=== PATIENT | female | born 1955 | race Caucasian/White ===

== ENCOUNTER 2017-02-23 20:34 | Inpatient (IN) ==
[2017-02-23] MEDS ORDERED: Ringers Solution, Lactated 1,000 ML ONE (20:53)
[2017-02-23] MEDS ORDERED: *HR* Promethazine 25 MG/ML VIAL IVP PRN (21:08)
[2017-02-23] MEDS ORDERED: *HR* HYDROmorphone (PF) 1 MG/ML SYRINGE IVP PRN (21:08)
[2017-02-23] MEDS ORDERED: Ondansetron 4 MG/2 ML VIAL IVP ONE (21:08)
--- NOTE | 2017-02-23 21:08 | Anesthesia Evaluation PreOp ---
Date of Encounter: 02/23/17 Time of Encounter: 21:06 - Past History Planned Operation: Exploratory Celiotomy Cardiac History: Hyperlipidemia Pulmonary History: Denies Any Significant HX ATTENDANCE OFFICER History: Denies Any Significant HX Other Medical History: Other (anxiety/depression) Anesthesia History: No Prior Anesthetic Complications, Past Anesthesia Alcohol Use: none Drug use: none Medications and Allergies ALPRAZolam [Xanax 0.25 MG Tablet] 1 mg PO BID 02/23/17 [History] Multivitamin [One Daily Essential] 1 each PO DAILY 02/23/17 [History] Mv,Iron,Min/Folic Acid/Biotin [Hair, Skin and Nails Softgel] 1 tab PO DAILY 08/07 [History] Sertraline [Zoloft] 100 mg PO DAILY 02/23/17 [History] 3 Allergy/AdvReac Type Severity Reaction Status Date / Time No Known Allergies Allergy Verified 02/23/17 20:36 - Meds/Allergy Pre-op Review Medications Reviewed: Yes Allergies Reviewed: Yes Beta Blockers on Current Med List: No Anesthesia Results - Labs Laboratory Tests 02/23/17 02/23/17 18:43 18:43 WBC 9.0 Hgb 13.9 Hct 38.7 Plt Count 196 Sodium 141 Potassium 3.4 L BUN 22 H Creatinine 0.72 - Imaging EKG: report reviewed (02/23/2017 SR) Anesthesia Exam Vital Signs/O2 Sat, Most Current Temp Pulse Resp BP Pulse Ox 99.7 F H 85 20 147/88 97 02/23/17 20:36 02/23/17 20:36 02/23/17 20:53 02/23/17 20:53 02/23/17 20:36 Height: 5'4''/1.63 m Weight: 153 lbs/69.4 kg NPO (# of Hours): 8 Pain Scale: 6 Pain Scale Used: Numeric (1 - 10) - HEENT Pupil (Motor): EOMI Mallampati: II Teeth: Normal Oral Opening: Greater than 3 - ATTENDANCE OFFICER LOC: Oriented ATTENDANCE OFFICER Motor: Normal RUE, Normal LUE, Normal RLE, Normal LLE, Normal Face ATTENDANCE OFFICER Sensory: Normal: RUE, LUE, RLE, LLE, Face - Cardiac Rhythm: Regular Murmur: None - Pulmonary Breath Sounds: bilateral Clear Respiratory Effort: Symmetrical Anesthesia Assess/Plan ASA Score: 2, E Modified [place] Scale for Level of Consciousness: Cooperative, oriented, and tranquil Anesthetic Plan: General Monitoring Plan: Standard Monitors Recovery Plan: ICU
[2017-02-23] MEDS ORDERED: Ringers Solution, Lactated 500 ML IVC ONE (23:51)
--- NOTE | 2017-02-23 23:54 | Operative Note ---
Date of procedure: 02/23/17 Pre-op diagnosis: acute abd pain, peritonitis due to perforated viscus Post-op diagnosis: other (acute perforated anterior duodenal ulcer) Procedure: exploratory celiotomy with excision perforated ulcer anterior duodenal bulb; Guillermo pyloroplasty, Truncal Vagotomy; placement Post gastrostomy tube Complications: none apparent Anesthesia: JORGE Surgeon: James Falk Action Finisher: Sean Sheikh Estimated blood loss (cc): 100 IV fluids (cc): 1,000 Specimen: anterior duodenal ulcer, vagus nerves (left marked with suture) Condition: stable Disposition: ICU Procedure in Detail: The patient was brought to the operating room where she was placed supine on the operating table. Surgical consent was obtained preoperatively. The patient was appropriately identified as to person and procedure. The accuracy of this information was confirmed by the procedure team. The patient was then intubated and anesthetized under the supervision of Dr. Arvin Rogers. Roa catheter was inserted, an orogastric tube was placed. The abdomen was prepped and draped in the usual sterile fashion. An upper midline incision was made with a #10 scalpel and extended to the fascia. Bleeding points were controlled with electrocautery. Fascia was divided in the midline along the linea alba. The abdomen was entered atraumatically. Inflammatory fluid was immediately apparent in the vicinity of the stomach. Exposure was facilitated with the self -retaining Omni tract retractor. The liver appeared grossly normal as did the gallbladder and spleen. Examination of the small bowel and colon was limited by adhesions in the pelvis, but the exam demonstrated no significant abnormalities seen either structure. The stomach was retracted, a clean perforated ulcer of the anterior duodenal bulb was identified. The ulcer was excised. The duodenotomy was extended proximally through the pylorus onto the anterior antrum. A Post gastrostomy tube was introduced through the left upper anterior abdominal wall. A gastrotomy was created with the Bovie electrocautery on the anterior gastric wall allowing the Post gastrostomy tube be passed thru the gastrotomy to the defect created on anterior gastric wall and duodenum. The gastrotomy was closed with a 3-0 silk pursestring The anterior gastric wall was secured to the anterior abdominal wall with 3-0 silk. The gastrostomy tube was then threaded into the distal duodenum. The pyloroplasty was then closed transversely in a technique described by Jose Ramon Casillas. This was accomplished with interrupted 3-0 silk followed by a double application of an Ethicon TX 60 mm stapler using 3.5 mm kaylen (green cartridge ). The abdomen was copiously irrigated with warm sterile saline which was evacuated with a suction device. I then proceeded to the intra-abdominal esophagus to complete a truncal vagotomy. The peritoneal covering of the esophagus was incised, the esophagus was isolated and tagged with a half-inch Kamryn drain. The right and left vagus nerves were identified by palpation, grasped with a right angle clamp. Clips were applied distal and proximal and a segment of the Vagus nerves was excised and sent to Pathology. Left vagus nerve was tagged with a silk suture. After completing the truncal vagotomy, examination of the distal esophagus demonstrated no other bandlike structures suggestive of neural tissue. The abdomen was then inspected for adequate hemostasis. The pyloroplasty was intact by inspection. Closure was then accomplished in layers. The peritoneum was closed with running interlocking 0 Vicryl. The midline fascia was approximated with interrupted [id number] of 0 Vicryl. The subcutaneous tissue was approximated with running 3-0 Vicryl. The skin edges were approximated with kaylen. A dry sterile dressing was applied. The patient was taken to ICU in stable condition. Needle, sponge, and instrument counts were correct at the close of the case.
[2017-02-24] MEDS ORDERED: Ondansetron 4 MG/2 ML VIAL IVP PRN ×2 (00:13→11:30)
[2017-02-24] MEDS ORDERED: *HR* HYDROmorphone 20 MG/20 ML PCA IVC PRN ×2 (00:13→11:30)
[2017-02-24] MEDS ORDERED: *HR* LORazepam 0.5 MG TABLET PO PRN ×2 (00:13→11:30)
[2017-02-24] MEDS ORDERED: Ringers Solution, Lactated 1,000 ML IVC SCH (00:13)
[2017-02-24] MEDS: Albuterol 2.5 MG/3 ML NEBULIZER IH SCH ×6 (00:52→22:45)
[2017-02-24] MEDS: ceFAZolin 1,000 MG in D5% in Water (Mini-Bag+) 100 ML IVPB SCH ×2 (01:00→09:07)
[2017-02-24] MEDS ORDERED: 0.9 % Sodium Chloride 250 ML ONE (01:14)
[2017-02-24 04:13] LABS: BUN/Creatinine Ratio 23 (6-26); Blood Urea Nitrogen 17 mg/dL (7-20); Calcium 8.7 mg/dL (8.6-10.8); Carbon Dioxide 26 mEq/L (19-29); Chloride 107 mEq/L (98-109); Glucose 171 mg/dL (70-99); Osmolality,Calculated 296 (280-300); Potassium 3.7 mEq/L (3.5-4.5); Sodium 140 mEq/L (136-145); eGFR For African Americans > 60 (> 60); eGFR For Non-African Americans > 60 (> 60)
[2017-02-24 04:16] LABS: Basophils % 0.1 %; Hematocrit 38.2 % (35.3-44.9); Hemoglobin 12.9 g/dL (11.5-15.4); Immature Granulocytes % 0.3 % (0-4); Lymphocytes # 0.5 K/mcL (0.6-4.6); Lymphocytes % 5.3 %; Mean Corpuscular HGB Conc 33.8 g/dL (31.6-35.5); Mean Corpuscular Hemoglobin 30.5 pg (28.0-33.3); Mean Corpuscular Volume 90.3 fL (83.0-100.0); Mean Platelet Volume 8.7 fL (9.4-12.4); Monocytes # 0.3 K/mcL (0.0-1.3); Monocytes % 2.9 %; Neutrophils # 8.7 K/mcL (1.6-8.9); Platelet Count 182 K/mcL (140-400); Red Blood Count 4.23 M/mcL (3.82-4.97); Red Cell Distribution Width 12.5 % (11.5-14.5); Segmented Neutrophils % 91.4 %
[2017-02-24 05:02] LABS: Platelet Estimate Normal (Normal)
[2017-02-24] MEDS ORDERED: Pantoprazole 40 MG VIAL IVP SCH (09:00)
--- NOTE | 2017-02-24 10:15 | General Surgery Progress Note ---
Date of Encounter: 02/24/17 Time of Encounter: 10:10 Subjective Patient reports: feels better Narrative: General Surgery - POD#1 Patient feeling much better with almost complete resolution pre op abdominal pain. No N/V. Afebrile, 98.2; pulse 91, respirations 16, blood pressure 111/75. SPO2 on room air 95% Lungs: Clear, better inspiratory effort; minimal abdominal pain on inspiration Cardiac: Regular rate, no appreciable murmurs Abdomen: Soft, minimal incisional tenderness. Incision clean and dry. Bowel sounds present Gastrostomy output proximally 75 mL bilious fluid Urine output: 700 mL since surgery Laboratories: White count 9.5, hemoglobin 12.9, hematocrit 38.2. Platelet count 182,000 Electrolytes within normal limits; BUN 17, creatinine 0.74. Impression: Postoperative day 1, status post exploratory ciliotomy with excision of perforated anterior duodenal ulcer; Heineke-Mikulicz pyloroplasty, truncal vagotomy and placement of Post gastrostomy tube. Acceptable postoperative status. Plan: Transfer to general bed Maintain nothing by mouth Remove Roa Objective Vital Signs - Last 8 Hours Temp Pulse Resp BP Pulse Ox 02/24/17 09:00 91 16 111/75 95 02/24/17 08:00 74 16 118/70 95 02/24/17 07:48 76 02/24/17 07:41 16 96 02/24/17 07:00 80 18 115/75 96 02/24/17 06:00 80 10 105/70 98 02/24/17 05:00 96 22 105/68 98 02/24/17 04:48 98.2 F 02/24/17 04:00 87 13 117/76 97 02/24/17 03:49 78 02/24/17 03:45 16 98 02/24/17 03:00 79 10 106/72 97 02/24/17 02:30 92 14 117/56 98 Intake and Output 02/23/17 02/24/17 02/24/17 23:59 07:59 15:59 Intake Total 100 / 100 Output Total 875 / 875 Balance -775 / -775 Intake: IV Fluids 100 / 100 Ancef 1,000 MG In Dextrose 5% ( 100 / 100 Minibag+) 100 ML 100 ML @ 200 mls/hr IVPB Q8H [facility] Rx#: [id number] Output: Estimated Blood Loss 100 / 100 Catheter 700 / 700 Gastric Drainage 75 / 75 Other: Blood Glucose* 175 - Labs 02/24/17 03:56 02/24/17 03:56 Diabetes panel 02/24/17 Range/Units 03:56 Sodium 140 (136-145) mEq/L Potassium 3.7 (3.5-4.5) mEq/L Chloride 107 (98-109) mEq/L Carbon Dioxide 26 (19-29) mEq/L BUN 17 (7-20) mg/dL Creatinine 0.74 (0.57-1.11) mg/dL Glucose 171 H (70-99) mg/dL Calcium 8.7 (8.6-10.8) mg/dL Calcium panel 02/24/17 Range/Units 03:56 Calcium 8.7 (8.6-10.8) mg/dL Pituitary panel 02/24/17 Range/Units 03:56 Sodium 140 (136-145) mEq/L Potassium 3.7 (3.5-4.5) mEq/L Chloride 107 (98-109) mEq/L Carbon Dioxide 26 (19-29) mEq/L BUN 17 (7-20) mg/dL Creatinine 0.74 (0.57-1.11) mg/dL Glucose 171 H (70-99) mg/dL Calcium 8.7 (8.6-10.8) mg/dL Adrenal panel 02/24/17 Range/Units 03:56 Sodium 140 (136-145) mEq/L Potassium 3.7 (3.5-4.5) mEq/L Chloride 107 (98-109) mEq/L Carbon Dioxide 26 (19-29) mEq/L BUN 17 (7-20) mg/dL Creatinine 0.74 (0.57-1.11) mg/dL Glucose 171 H (70-99) mg/dL Calcium 8.7 (8.6-10.8) mg/dL - VTE Documentation of Mechanical Device: Intermittent pneumatic compression device Consult Discharge Plan - Plan Referrals: Дмитрий Washington MD [Primary Care Provider] -
[2017-02-24] MEDS: D5% in 0.45% NACL 1,000 ML IVC SCH (13:48)
[2017-02-24] MEDS: *HR* Heparin 5,000 UNIT/ML VIAL SQ SCH (17:21)
[2017-02-24] MEDS ORDERED: *HR* Heparin 5,000 UNIT/ML VIAL SQ SCH (18:00)
--- NOTE | 2017-02-24 22:53 | Electrocardiograph Report ---
[facility] [place] Test Date: 2017-02-23 Pat Name: Zaira Flores Department: 103 Room: 3A53 Gender: F [employer]: GLEN : 1955 Requested By: James Falk Order Number: [id number] Reading MD: Jamie Worthy MD Measurements Intervals [place] Rate: 81 P: 51 OH: 140 QRS: 43 QRSD: 86 T: 43 QT: 367 QTc: 404 Interpretive Statements SINUS RHYTHM Electronically Signed On 02-24-2017 22:52:20 EDT by Jamie Worthy MD
[2017-02-25] MEDS: Albuterol 2.5 MG/3 ML NEBULIZER IH SCH ×4 (04:02→22:31)
[2017-02-25] MEDS: D5% in 0.45% NACL 1,000 ML IVC SCH ×2 (05:31→17:08)
[2017-02-25] MEDS: *HR* Heparin 5,000 UNIT/ML VIAL SQ SCH ×2 (05:33→17:08)
[2017-02-25 05:50] LABS: Basophils % 0.1 %; Eosinophils % 0.2 %; Hematocrit 34.4 % (35.3-44.9); Hemoglobin 11.7 g/dL (11.5-15.4); Immature Granulocytes % 0.4 % (0-4); Lymphocytes % 10.2 %; Mean Corpuscular Hemoglobin 31.1 pg (28.0-33.3); Mean Corpuscular Volume 91.5 fL (83.0-100.0); Mean Platelet Volume 9.4 fL (9.4-12.4); Monocytes # 0.5 K/mcL (0.0-1.3); Monocytes % 4.4 %; Neutrophils # 8.7 K/mcL (1.6-8.9); Platelet Count 172 K/mcL (140-400); Red Blood Count 3.76 M/mcL (3.82-4.97); Red Cell Distribution Width 12.9 % (11.5-14.5); Segmented Neutrophils % 84.7 %
[2017-02-25] MEDS: Pantoprazole 40 MG VIAL IVP SCH (08:13)
--- NOTE | 2017-02-25 13:20 | General Surgery Progress Note ---
Date of Encounter: 02/25/17 Time of Encounter: 13:15 Subjective Patient reports: no new complaints, feels better Narrative: General Surgery - POD #2 patient feeling better; incisional pain diminished/controlled. No N/V Maximum temperature 99.4, pulse 86., Respirations 14, blood pressure 143/ 79. SPO2 in room air 95% Lungs: Clear, improved inspiratory effort as abdominal pain has diminished. Cardiac: Regular rate, no appreciable murmurs Abdomen: Soft, incisional tenderness as expected, no audible bowel sounds. Gastrostomy site clean and dry; answered output approximately 300 mL in the last 24 hours. Roa removed, patient able to void without difficulty. Laboratories: White count 10.2, hemoglobin 11.7 with hematocrit 34.4; platelet count 172,000.; Differential within normal limits Pathology: Pending Impression: Postoperative day 2, status post expiratory ciliotomy with excision of perforated duodenal ulcer; truncal vagotomy with Heineke-Mikulicz pyloroplasty Acceptable status. Objective Vital Signs - Last 8 Hours Temp Pulse Resp BP Pulse Ox 02/25/17 10:30 16 93 02/25/17 06:55 99.4 F 86 14 143/79 95 Intake and Output 02/24/17 02/25/17 02/25/17 23:59 07:59 15:59 Intake Total 1000 / 1000 499 / 499 Output Total 100 / 100 Balance 900 / 900 499 / 499 Intake: IV Fluids 1000 / 1000 499 / 499 D5% And 0.45% Nacl 1000 Ml Bag 1000 / 1000 499 / 499 1,000 ML @ 75 mls/hr IVC . [id number] [facility] Rx#:[id number] Output: Urine 100 / 100 Other: Meal NPO Weight 68 kg Blood Glucose* 141 124 Patient Weight 02/25/17 23:59 Weight 68 kg - Labs 02/25/17 04:56 02/24/17 03:56 - VTE Documentation of Mechanical Device: Intermittent pneumatic compression device Consult Discharge Plan - Plan Referrals: Дмитрий Washington MD [Primary Care Provider] -
[2017-02-26] MEDS: Albuterol 2.5 MG/3 ML NEBULIZER IH SCH ×4 (04:04→22:10)
[2017-02-26] MEDS: *HR* Heparin 5,000 UNIT/ML VIAL SQ SCH ×2 (05:40→17:54)
[2017-02-26] MEDS: Pantoprazole 40 MG VIAL IVP SCH (08:20)
[2017-02-26] MEDS: D5% in 0.45% NACL 1,000 ML IVC SCH ×3 (08:21→23:16)
--- NOTE | 2017-02-26 11:27 | General Surgery Progress Note ---
Date of Encounter: 02/26/17 Time of Encounter: 11:10 Subjective Patient reports: feels better, pain is less Narrative: General Surgery - POD #3 Patient feeling well, voicing no complaints; patient indicates pain is markedly diminished. No nausea vomiting, no abdominal distention. Maximum temperature 99.3, pulse 69-89; respirations 15 and nonlabored, blood pressure 131/81. SPO2 on room air 96%. Lungs: Clear to auscultation, no obvious abdominal pain with deep inspiration. Cardiac: Regular rate with no tachycardia; no appreciable murmurs Abdomen: Soft, nontender but quiet. No flatus or BM. Midline incision clean and dry Gastrostomy -approximately 250 mL Watery, lightly green tinged fluid. Urine output: 800 mL for calendar day 02/25/17; 900 mL so far today Pathology: Benign duodenal ulcer with no atypia identified; 2 segments of vagus nerve verified Impression: Postoperative day 3, status post exploratory celiotomy with excision perforated duodenal ulcer, truncal vagotomy with Heineke-Mikulicz pyloroplasty. Patient doing well; bowel activity yet to return. This is likely due to the chemical peritonitis caused by the perforated duodenal ulcer. Plan: We will trial clamping gastrostomy tube; maintain NPO except for ice chips until bowel function improves. Objective Vital Signs - Last 8 Hours Temp Pulse Resp BP Pulse Ox 02/26/17 10:54 99.3 F 82 15 131/81 95 02/26/17 10:34 15 96 02/26/17 06:58 98.8 F 69 15 144/87 96 02/26/17 04:42 99.0 F 89 16 128/78 95 02/26/17 04:04 16 95 Intake and Output 02/25/17 02/26/17 02/26/17 23:59 07:59 15:59 Intake Total 501 / 501 0 / 0 1000 / 1000 Output Total 550 / 550 700 / 700 450 / 450 Balance -49 / -49 -700 / -700 550 / 550 Intake: IV Fluids 501 / 501 1000 / 1000 D5% And 0.45% Nacl 1000 Ml Bag 501 / 501 1000 / 1000 1,000 ML @ 75 mls/hr IVC . [id number] [facility] Rx#:[id number] Oral 0 / 0 0 / 0 0 / 0 Output: Urine 550 / 550 700 / 700 200 / 200 Gastric Drainage 250 / 250 Other: Meal NPO Blood Glucose* 134 124 - Labs 02/25/17 04:56 02/24/17 03:56 - VTE Documentation of Mechanical Device: Intermittent pneumatic compression device Consult Discharge Plan - Plan Referrals: Дмитрий Washington MD [Primary Care Provider] -
[2017-02-27] MEDS: Albuterol 2.5 MG/3 ML NEBULIZER IH SCH ×4 (04:02→21:20)
[2017-02-27 04:46] LABS: Basophils % 0.4 %; Eosinophils # 0.4 K/mcL (0.0-0.6); Eosinophils % 4.9 %; Hematocrit 32.8 % (35.3-44.9); Hemoglobin 11.1 g/dL (11.5-15.4); Immature Granulocytes % 0.5 % (0-4); Immature Platelets 2.2 % (1.1-6.1); Lymphocytes # 1.3 K/mcL (0.6-4.6); Lymphocytes % 16.7 %; Mean Corpuscular HGB Conc 33.8 g/dL (31.6-35.5); Mean Corpuscular Hemoglobin 30.5 pg (28.0-33.3); Mean Corpuscular Volume 90.1 fL (83.0-100.0); Mean Platelet Volume 9.2 fL (9.4-12.4); Monocytes # 0.5 K/mcL (0.0-1.3); Neutrophils # 5.4 K/mcL (1.6-8.9); Platelet Count 227 K/mcL (140-400); Red Blood Count 3.64 M/mcL (3.82-4.97); Red Cell Distribution Width 12.5 % (11.5-14.5); Segmented Neutrophils % 71.5 %
[2017-02-27 05:00] LABS: BUN/Creatinine Ratio 23 (6-26); Blood Urea Nitrogen 13 mg/dL (7-20); Carbon Dioxide 30 mEq/L (19-29); Chloride 103 mEq/L (98-109); Glucose 125 mg/dL (70-99); Osmolality,Calculated 296 (280-300); Potassium 2.9 mEq/L (3.5-4.5); Sodium 142 mEq/L (136-145); eGFR For African Americans > 60 (> 60); eGFR For Non-African Americans > 60 (> 60)
[2017-02-27] MEDS: *HR* Heparin 5,000 UNIT/ML VIAL SQ SCH ×2 (05:44→19:35)
[2017-02-27] MEDS: Pantoprazole 40 MG VIAL IVP SCH (09:08)
--- NOTE | 2017-02-27 11:39 | General Surgery Progress Note ---
Date of Encounter: 02/27/17 Time of Encounter: 11:15 Subjective Patient reports: no new complaints, feels better, bowel movement Narrative: General Surgery - POD #4 Patient feeling well, voicing no complaints. Afebrile, 98.2; pulse 78, respirations 18, blood pressure 129/77. SPO2 1 room air 98% Lungs: Clear, no obvious abdominal pain to deep inspiration Cardiac: Regular rate, no appreciable murmurs; tachycardia noted in the immediate postoperative period has resolved without recurrence Abdomen: Soft, minimal tenderness to deep palpation. No rebound. Bowel sounds now audible. Urine output approximately 1300 mL for the last 24 hours. 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 [id number] [facility] Rx#:[id number] Oral 0 / 0 0 / 0 0 / 0 Output: Urine 200 / 200 300 / 300 0 / 0 Gastric Drainage 650 / 650 Other: Meal NPO NPO # Bowel Movements 1 Weight 68.2 kg Blood Glucose* 129 124 119 Patient Weight 02/27/17 23:59 Weight 68.2 kg - Labs 02/27/17 03:46 02/27/17 03:46 Diabetes panel 02/27/17 Range/Units 03:46 Sodium 142 (136-145) mEq/L Potassium 2.9 L (3.5-4.5) mEq/L Chloride 103 (98-109) mEq/L Carbon Dioxide 30 H (19-29) mEq/L BUN 13 (7-20) mg/dL Creatinine 0.57 (0.57-1.11) mg/dL Glucose 125 H (70-99) mg/dL Calcium 9.0 (8.6-10.8) mg/dL Calcium panel 02/27/17 Range/Units 03:46 Calcium 9.0 (8.6-10.8) mg/dL Pituitary panel 02/27/17 Range/Units 03:46 Sodium 142 (136-145) mEq/L Potassium 2.9 L (3.5-4.5) mEq/L Chloride 103 (98-109) mEq/L Carbon Dioxide 30 H (19-29) mEq/L BUN 13 (7-20) mg/dL Creatinine 0.57 (0.57-1.11) mg/dL Glucose 125 H (70-99) mg/dL Calcium 9.0 (8.6-10.8) mg/dL Adrenal panel 02/27/17 Range/Units 03:46 Sodium 142 (136-145) mEq/L Potassium 2.9 L (3.5-4.5) mEq/L Chloride 103 (98-109) mEq/L Carbon Dioxide 30 H (19-29) mEq/L BUN 13 (7-20) mg/dL Creatinine 0.57 (0.57-1.11) mg/dL Glucose 125 H (70-99) mg/dL Calcium 9.0 (8.6-10.8) mg/dL - VTE Documentation of Mechanical Device: Intermittent pneumatic compression device Consult Discharge Plan - Plan Referrals: Дмитрий Washington MD [Primary Care Provider] -
[2017-02-27] MEDS ORDERED: Acetaminophen 325 MG TABLET PO PRN (11:40)
[2017-02-27] MEDS ORDERED: *HR* HYDROcodone/Acet 5/325 mg TABLET PO PRN (11:40)
[2017-02-27] MEDS ORDERED: Potassium Chloride 20 MEQ, Lidocaine 1% 2 ML in D5% in Water 250 ML IVPB ONE (11:41)
[2017-02-27] MEDS ORDERED: D5% in 0.45% NACL 1,000 ML IVC SCH (11:43)
[2017-02-27] MEDS: Potassium Chloride Elixir 20 MEQ/15 ML UDC GTUBE SCH ×2 (13:47→21:15)
[2017-02-28] MEDS: Albuterol 2.5 MG/3 ML NEBULIZER IH SCH (04:17)
[2017-02-28] MEDS: *HR* Heparin 5,000 UNIT/ML VIAL SQ SCH ×2 (05:20→18:00)
[2017-02-28] MEDS: Potassium Chloride Elixir 20 MEQ/15 ML UDC GTUBE SCH ×2 (09:02→21:51)
[2017-02-28] MEDS: Pantoprazole 40 MG VIAL IVP SCH (09:02)
--- NOTE | 2017-02-28 10:05 | General Surgery Progress Note ---
Date of Encounter: 02/28/17 Time of Encounter: 09:57 Subjective Patient reports: no new complaints Narrative: General Surgery - POD #5 Patient feeling well; tolerating clear liquids without abdominal pain, distention, nausea or vomiting. Afebrile, currently 98.6; maximum temperature through the night 99.1; pulse 76, respirations 18, BP 133/86. SPO2 on room air 97% Lungs: Clear bilaterally; no abdominal pain with deep inspiration Cardiac: Regular rate, no appreciable murmurs Abdomen: Soft, nondistended, nontender. Active bowel sounds. No peritoneal signs. Incision clean and dry; gastrostomy site also intact. Patient moving bowels, denies diarrhea Gastrostomy output - approximately 650 mL in the last 24 hours; likely reflective of initiation of clear liquid diet Urine output acceptable - measurements limited by urine/stool mix Potassium 3.1 Impression: Postoperative day 5, s/p exploratory celiotomy with excision perforated duodenal ulcer; truncal vagotomy with Heineke-Mikulicz pyloroplasty Hypokalemia - continue potassium supplements Acceptable postoperative status; advance diet Plan: Advance diet Continue twice a day potassium via gastrostomy tube Resume home meds (sertraline) DC IV fluids Recheck potassium in a.m. Objective Vital Signs - Last 8 Hours Temp Pulse Resp BP Pulse Ox 02/28/17 07:36 98.6 F 76 18 133/86 97 02/28/17 04:05 98.4 F 70 17 143/81 98 Intake and Output 02/27/17 02/28/17 02/28/17 23:59 07:59 15:59 Intake Total 120 / 120 0 / 0 Output Total 200 / 200 525 / 525 Balance -80 / -80 -525 / -525 Intake: Oral 120 / 120 0 / 0 Output: Urine 100 / 100 Urine/Stool Mix 100 / 100 400 / 400 Gastric Tube Lavage Amount 125 / 125 Left Lower Quadrant 125 / 125 Other: Meal Lunch Stool Size Small Stool Consistency soft soft Stool Characteristics Normal for Patient Stool Color Brown Brown Weight 65.913 kg Blood Glucose* 115 Patient Weight 02/28/17 23:59 Weight 65.913 kg - Labs 02/27/17 03:46 02/28/17 03:50 Diabetes panel 02/28/17 Range/Units 03:50 Potassium 3.1 L (3.5-4.5) mEq/L Pituitary panel 02/28/17 Range/Units 03:50 Potassium 3.1 L (3.5-4.5) mEq/L Adrenal panel 02/28/17 Range/Units 03:50 Potassium 3.1 L (3.5-4.5) mEq/L - VTE Documentation of Mechanical Device: Intermittent pneumatic compression device Consult Discharge Plan - Plan Referrals: Дмитрий Washington MD [Primary Care Provider] -
[2017-03-01] MEDS: *HR* Heparin 5,000 UNIT/ML VIAL SQ SCH (05:15)
[2017-03-01] MEDS: Potassium Chloride Elixir 20 MEQ/15 ML UDC GTUBE SCH (08:30)
[2017-03-01 10:28] VITALS: BP 126/76
--- NOTE | 2017-03-01 12:06 | General Surgery Progress Note ---
Date of Encounter: 03/01/17 Time of Encounter: 11:45 Subjective Patient reports: no new complaints Narrative: General Surgery - POD # 6 PROGRESS NOTE / DISCHARGE SUMMARY The patient feeling well, voicing no complaints; denies any abdominal pain. Tolerating gastrostomy tube clamped. Tolerating full liquid diet without abdominal pain, distention, nausea or vomiting. Afebrile, maximum temperature 99.0; pulse 87, respirations 15, blood pressure 126/76. SPO2 on room air 97-100% Lungs: Clear; no abdominal pain with deep inspiration Cardiac: Regular rate, no appreciable murmurs Abdomen: Soft, nontender; no rebound tenderness with active bowel sounds. Gastrostomy tube clamped. Gastrostomy site clean and dry Midline incision also clean and dry. Gastrostomy - 125 mL recorded output in the last 24 hours Hypokalemia corrected - 3.7 Impression: Postoperative day 6, status post open expiratory celiotomy with excision of perforated duodenal ulcer; truncal vagotomy with Heineke-Mikulicz pyloroplasty. Doing well postop. Acceptable status for discharge home. Hypokalemia- Most likely due to gastric aspiration; resolved Perforated duodenal ulcer most likely due to excessive use of NSAIDs. Future use of NSAIDs discussed in detail History of anxiety and depression Status on discharge: good Brief history: 61-year-old female transferred to [facility] 02/23/2017, after presenting to [facility] in acute distress due to a perforated viscus. Patient described abrupt onset of severe upper abdominal pain approximately [address] showed good wall thickening of the gastric antrum with adjacent inflammatory changes and foci of extraluminal air. These findings were consistent with a perforated viscus, likely perforated ulcer of either the gastric antrum or duodenum. Patient was emergently transferred to [facility] for surgical evaluation and treatment. Complete history and physicals available for inspection Hospital course: Patient was seen and evaluated on arrival [facility] ED, 02/23/2017. The patient was examined. Labs and CT were personally reviewed. Emergent surgery was indicated and discussed in detail with the patient. Patient underwent an exploratory celiotomy with excision of perforated ulcer anterior duodenal bulb with Heineke-Mikulicz pyloroplasty and truncal vagotomy. A Post gastrostomy tube was placed at the time of the surgery. The patient tolerated the procedure well and was transferred to a surgical floor for postoperative care and management. The patient had an unremarkable recovery, with resolution of abdominal pain and pentecostalism of bowel function within a few days. Hypokalemia developed, most likely due to chronic aspiration (section) of the stomach per gastrostomy during the initial post op recovery days. The hypokalemia corrected with administration IV and oral potassium. The patient otherwise remainder hemodynamically and medically stable until her discharge home, 03/01/2017, POD #6. At the time of discharge, patient was in good condition and did not have any abdominal pain. The patient was tolerating diet. Discharge instructions: Regular diet Patient may shower, wash incisions with soap and water Gastrostomy to remain clamped; patient may wash around gastrostomy tube with soap and water Activity as tolerated; lifting limited to less than 20 pounds Follow-up my office, 03/05/17 Patient may resume home meds; NSAIDs not to be used Prescription for omeprazole 20 mg by mouth daily Tylenol 650 mg by mouth up to 4 times daily as needed for pain Patient contact my office immediately if any abdominal pain, fevers, chills, nausea or vomiting develop Objective Vital Signs - Last 8 Hours Temp Pulse Resp BP Pulse Ox 03/01/17 10:27 99.0 F 87 15 126/76 97 03/01/17 07:12 98.5 F 86 15 123/80 98 03/01/17 04:10 98.1 F 67 17 144/81 100 Intake and Output 02/28/17 03/01/17 03/01/17 23:59 07:59 15:59 Intake Total 120 / 120 500 / 500 300 / 300 Output Total 0 / 0 0 / 0 Balance 120 / 120 500 / 500 300 / 300 Intake: Oral 120 / 120 500 / 500 300 / 300 Output: Urine 0 / 0 0 / 0 Other: # Voids 1 1 # Bowel Movements 1 - Labs 02/27/17 03:46 03/01/17 04:30 Diabetes panel 03/01/17 Range/Units 04:30 Potassium 3.7 (3.5-4.5) mEq/L Pituitary panel 03/01/17 Range/Units 04:30 Potassium 3.7 (3.5-4.5) mEq/L Adrenal panel 03/01/17 Range/Units 04:30 Potassium 3.7 (3.5-4.5) mEq/L - VTE Documentation of Mechanical Device: Intermittent pneumatic compression device Consult Discharge Plan - Plan Referrals: Дмитрий Washington MD [Primary Care Provider] -
--- NOTE | 2017-03-01 12:20 | Discharge Summary ---
Outpatient Proc Discharge Plan - Plan Additional Instructions: Patient may consume a regular diet Patient may shower, wash incision and around gastrostomy tube with soap and water Activity as tolerated; lifting limited to less than 20 pounds Tylenol 650 mg by mouth up to 4 times daily as needed for pain Patient may resume home medications but NSAIDs should be avoided (aspirin, ibuprofen, Motrin, Advil, Aleve, etc.) Prescription for omeprazole 20 mg by mouth daily has been provided Follow-up my office, 03/05/17. Prescriptions: Omeprazole [PriLOSEC] 20 mg PO DAILY@0630 #30 capsule. Home Medications: ALPRAZolam [Xanax 0.25 MG Tablet] 1 mg PO TID PRN 02/23/17 [History] Multivitamin [One Daily Essential] 1 tab PO DAILY 02/23/17 [History] Mv,Iron,Min/Folic Acid/Biotin [Hair, Skin and Nails Softgel] 1 tab PO DAILY 08/07 [History] Sertraline [Zoloft] 100 mg PO DAILY 02/23/17 [History] Lovastatin [Mevacor] 20 mg PO QPM 02/24/17 [History] Acetaminophen [Tylenol] 650 mg PO Q6HR PRN tablet 03/01/17 [Rx] Omeprazole [PriLOSEC] 20 mg PO DAILY@0630 #30 capsule. 03/01/17 [Rx]
--- NOTE | 2017-03-10 08:16 | General Surg History&Physical ---
Date of Encounter: 02/23/17 Time of Encounter: 20:35 History of Present Illness HPI: Ms. Flores is a 61 year old female transferred from [facility] for further evaluation & treatment of a perforated viscus. The H&P had been placed on the wrong account at the time of my initial encounter with the patient at [facility]. Chief complaint: acute abdominal pain, peritonitis due to perforated viscus HPI: Ms. Flores is a 61 year old female transferred to [facility] for further evaluation and treatment of acute abdominal pain due to a perforated viscus. The patient describes abrupt onset of severe upper abdominal pain approximately 1300 hrs. This was accompanied by nausea but the patient denied any emesis. The patient initially presented to urgent care with referral to [facility] ED. CT completed at [facility] demonstrated marked wall thickening involving the gastric antrum with adjacent inflammatory changes and foci of extraluminal air. Findings are consistent with gastritis/gastric ulcer with perforation. Patient was transferred to [facility] for further surgical evaluation and treatment. Past medical history: Anxiety and depression; the patient admits to frequent use of nonsteroidal anti-inflammatories for a variety of symptoms including toothache and "aches and pains" Allergies: No known drug allergies Medications: Alprazolam 0.25 mg 1 by mouth twice a day Lovastatin dose since frequency not specified Multivitamin 1 by mouth daily Sertraline 100 mg by mouth daily Surgical history: 2, tubal ligation 1996; exploratory celiotomy for endometriosis 1986 Social history: Patient is G2, P2; patient does not smoke, getting she quit 40 years ago. She denies any alcohol consumption or illicit drug use Family history: Not obtained Physical examination: The patient appears age-appropriate in some distress due to her abdominal pain; skin is warm, no obvious jaundice On arrival at [place], temperature 99.7, pulse 85, respirations 17, blood pressure 167/95. SPO2 on room air 97% Lungs: Clear but inspiratory effort diminished by abdominal pain Cardiac: Rate was regular without obvious murmur Abdomen: Acute epigastric tenderness and right lower quadrant; there is involuntary guarding and localized rebound. Bowel sounds were active. Extremities: No obvious clubbing, cyanosis, or edema. Laboratories ([facility]) White count 9.0, hemoglobin 13.9, hematocrit 38.7; platelet count 196,000; differential unremarkable Urinalysis notable for specific gravity 1.025, pH 5.5, 80 ketones, 3-5 red cells per high-powered field Sodium 141, potassium 3.4, chloride 108, carbon dioxide 21, BUN 22, creatinine 0.72. LFTs within normal limits. CT: Personally reviewed at [facility] Impression: 61-year-old female transferred from [facility] with abrupt onset severe upper abdominal pain, clinical evidence of acute peritonitis, and radiologic evidence of pneumoperitoneum consistent with perforated viscus. It appears that the patient has gastritis/gastric ulcer with perforation. Plan: Exploratory celiotomy; possible gastric resection and repair of the perforation. Postoperative admission to ICU The patient is aware of the clinical diagnosis and the acuity of the disease. Patient is aware she will be surgery DONAL. Risks of surgery including hemorrhage, infection, intra-abdominal abscess, injury to adjacent structures , respiratory failure/pneumonia, and cardiac risks. The patient expressed understanding. Consent has been obtained. Past Med Surg Social Fam HX - Past Medical History Medical history: hyperlipidemia Psychiatric history: anxiety, depression - Past Surgical History Surgical History: no surgical history - Social History Smoking Status: Former smoker Smokeless Tobacco Status: No Alcohol use: none Drug use: none Medications and Allergies ALPRAZolam [Xanax 0.25 MG Tablet] 1 mg PO TID PRN 02/23/17 [History] Multivitamin [One Daily Essential] 1 tab PO DAILY 02/23/17 [History] Mv,Iron,Min/Folic Acid/Biotin [Hair, Skin and Nails Softgel] 1 tab PO DAILY 08/07 [History] Sertraline [Zoloft] 100 mg PO DAILY 02/23/17 [History] Lovastatin [Mevacor] 20 mg PO QPM 02/24/17 [History] Acetaminophen [Tylenol] 650 mg PO Q6HR PRN tablet 03/01/17 [Rx] Omeprazole [PriLOSEC] 20 mg PO DAILY@0630 #30 capsule. 03/01/17 [Rx] 3 Allergy/AdvReac Type Severity Reaction Status Date / Time No Known Allergies Allergy Verified 02/23/17 20:36 Review of Systems All systems PM: A 10-system review of systems was performed and is negative for pertinent findings except as documented above in the HPI. General Surgery Exam Initial Vital Signs Temp Pulse Resp BP Pulse Ox 99.7 F H 85 17 167/95 97 02/23/17 20:36 02/23/17 20:36 02/23/17 20:36 02/23/17 20:36 02/23/17 20:36 Results - Labs 02/27/17 03:46 03/01/17 04:30 Abnormal lab results RBC 3.64 M/mcL (3.82-4.97) L 02/27/17 03:46 Hgb 11.1 g/dL (11.5-15.4) L 02/27/17 03:46 Hct 32.8 % (35.3-44.9) L 02/27/17 03:46 MPV 9.2 fL (9.4-12.4) L 02/27/17 03:46 Carbon Dioxide 30 mEq/L (19-29) H 02/27/17 03:46 Glucose 125 mg/dL (70-99) H 02/27/17 03:46 POC Glucose 115 (58-89) H 02/27/17 17:36 All other labs normal. - VTE Documentation of Mechanical Device: Intermittent pneumatic compression device
== END 2017-03-01 16:30 | disposition home or self-care (01) | DRG 220 ==
LOC: EMEROO 20:34 → ICNU 20:53 → EMEROO 20:54 → ICNU 20:56 → 3ANU 02-24 19:23
PROVIDERS: ADMIT Surgery; ATTEND Surgery